=== PATIENT | male | born 1995 | race Caucasian/White ===

== ENCOUNTER 2017-06-06 17:02 | Emergency (ER) | payer MEDICAID ==
[~2017-06-06] VITALS: Ht 175.3 cm; Wt 85.0 kg
[2017-06-06 17:08] VITALS: Ht 175.3 cm; Wt 85.0 kg
[2017-06-06] MEDS ORDERED: SOD CHLORIDE 0.9% 1,000 ML IV STA (19:51)
[2017-06-06] MEDS ORDERED: ASPIRIN 81 MG TAB PO STA (19:51)
[2017-06-06 20:18] LABS: ADD UMIC NO; UR ASCORBIC ACID NEGATIVE (NEGATIVE); UR BILIRUBIN (Dip) NEGATIVE (NEGATIVE); UR BLOOD (Dip) NEGATIVE (NEGATIVE); UR CLARITY CLEAR (CLEAR); UR COLOR YELLOW (YELLOW); UR GLUCOSE (Dip) NEGATIVE (NEGATIVE); UR KETONES (Dip) NEGATIVE (NEGATIVE); UR LEUKOCYTE ESTERASE (Dip) NEGATIVE Leu/ul (NEGATIVE); UR NITRITE (Dip) NEGATIVE (NEGATIVE); UR SPECIFIC GRAVITY (Dip) 1.023 (1.003-1.030); UR TOTAL PROTEIN (Dip) NEGATIVE (NEGATIVE); UR UROBILINOGEN (Dip) NEGATIVE (NEGATIVE)
[2017-06-06 20:18] LABS: BASOPHILS % 0.4 % (0.0-2.0); EOSINOPHILS # 0.1 10^3/ul (0.0-0.5); EOSINOPHILS % 0.7 % (0.0-7.0); HEMATOCRIT 48.7 % (42.0-52.0); HEMOGLOBIN 17.4 g/dl (14.0-18.0); LYMPHOCYTES # 3.6 10^3/ul (0.8-2.9); LYMPHOCYTES % 48.6 % (15.0-51.0); MEAN CORPUSCULAR HEMOGLOBIN 31.2 pg (29.0-33.0); MEAN CORPUSCULAR HGB CONC 35.7 g/dl (32.0-37.0); MEAN CORPUSCULAR VOLUME 87.3 fl (82.0-101.0); MEAN PLATELET VOLUME 10.3 fl (7.4-10.4); MONOCYTE # 0.4 10^3/ul (0.3-0.9); NEUTROPHIL # 3.2 10^3/ul (1.6-7.5); NEUTROPHILS % 44.2 % (39.0-77.0); PLATELET COUNT 276 10^3/UL (140-415); RED BLOOD COUNT 5.58 10^6/ul (4.70-6.10); RED CELL DISTRIBUTION WIDTH 11.9 % (11.5-14.5); WHITE BLOOD COUNT 7.3 10^3/ul (4.8-10.8)
[2017-06-06 20:44] LABS: CALCIUM 10.5 mg/dl (8.4-10.2); CREATININE 1.01 mg/dl (0.61-1.24)
[2017-06-06 20:59] LABS: INR 1.15; PARTIAL THROMBOPLASTIN TIME 29.3 Sec (25.0-35.0); PROTIME 14.7 Sec (12.2-14.2); PT RATIO 1.1
--- NOTE | 2017-06-07 01:29 | RADRPT ---
PROCEDURE: Portable chest x-ray. CLINICAL INDICATION: Chest pain. TECHNIQUE: Portable AP view of the chest. COMPARISON: None. FINDINGS: No pulmonary edema or conolidation is identified. The cardiac silhouette is magnified. No pleural effusion is seen. There is no pneumothorax. IMPRESSION: 1. No evidence of acute cardiopulmonary disease. RPTAT: HTAR .Louis Powell MD, MD Date Time Electronically viewed and signed by .Louis Powell MD, on 06/07/2017 01:29 .R/
--- NOTE | 2017-06-07 02:42 | ERA ---
ER Documentation Chief Complaint Date/Time DATE: 06/07/17 TIME: 02:36 Chief Complaint loss of appetite, fatigue and chest pain x 1 week HPI 21-year-old male presenting with chest pain shortness of breath 1 day. Review of the nurse's notes is consistent from history I have obtained from the patient. Patient is a poor historian. Describes chest discomfort as pressure. No radiation. Patient denies drugs, previous ND/VTE, upper back pain, aching arm pain/numbness, leg pain/swelling, syncope, irregular heart beat, or epigastric pain. Patient also denies any personal or family cardiac history. ROS All systems reviewed and are negative except as per history of present illness. PMhx/Soc Medical and Surgical Hx: pt denies Medical Hx, pt denies Surgical Hx History of Surgery: No (DENIES MEDICAL AND SURGICAL HX.) Hx Alcohol Use: No Hx Substance Use: No Hx Tobacco Use: No Smoking Status: Never smoker Physical Exam Vitals Vital Signs Date Time Temp Pulse Resp B/P Pulse Ox O2 Delivery O2 Flow Rate FiO2 06/06/17 17:08 98.3 52 18 140/80 97 Physical Exam Const: 21-year-old male in no acute distress. Head: Atraumatic Eyes: Normal Conjunctiva ENT: Normal External Ears, Nose and Mouth. Neck: Full range of motion..~ No meningismus. Resp: Clear to auscultation bilaterally Cardio: Regular rate and rhythm, no murmurs Abd: Soft, non tender, non distended. Normal bowel sounds Skin: Diaphoretic. No petechiae or rashes Back: No midline or flank tenderness Ext: No cyanosis, or edema Neur: Awake and alert Psych: Altered affect. Normal Mood. Result Diagram: 06/06/17200506/06/172005 Results 24 hrs Laboratory Tests Test 06/06/17 19:35 06/06/17 20:06 Urine Color YELLOW Urine Clarity CLEAR Urine pH 6.0 Urine Specific [place] 1.023 Urine Ketones NEGATIVEmg/dL Urine Nitrite NEGATIVEmg/dL Urine Bilirubin NEGATIVEmg/dL Urine Urobilinogen NEGATIVEmg/dL Urine Leukocyte Esterase NEGATIVELeu/ul Urine Hemoglobin NEGATIVEmg/dL Urine Glucose NEGATIVEmg/dL Urine Total Protein NEGATIVEmg/dl White Blood Count 7.310^3/ul Red Blood Count 5.5810^6/ul Hemoglobin 17.4g/dl Hematocrit 48.7% Mean Corpuscular Volume 87.3fl Mean Corpuscular Hemoglobin 31.2pg Mean Corpuscular Hemoglobin Concent 35.7g/dl Red Cell Distribution Width 11.9% Platelet Count 64632^3/UL Mean Platelet Volume 10.3fl Neutrophils % 44.2% Lymphocytes % 48.6% Monocytes % 6.0% Eosinophils % 0.7% Basophils % 0.4% Nucleated Red Blood Cells % 0.0/100WBC Neutrophils # 3.210^3/ul Lymphocytes # 3.610^3/ul Monocytes # 0.410^3/ul Eosinophils # 0.110^3/ul Basophils # 0.010^3/ul Nucleated Red Blood Cells # 0.010^3/ul Prothrombin Time 14.7Sec Prothrombin Time Ratio 1.1 INR International Normalized Ratio 1.15 Activated Partial Thromboplast Time 29.3Sec Sodium Level 143mmol/L Potassium Level 4.0mmol/L Chloride Level 100mmol/L Carbon Dioxide Level 28mmol/L Anion Gap 19 Blood Urea Nitrogen 10mg/dl Creatinine 1.01mg/dl Glucose Level 94mg/dl Calcium Level 10.5mg/dl Troponin I < 0.012ng/ml Current Medications Medications (Trade) Dose Ordered Sig/Goyo Route PRN Reason Start Time Stop Time Status Last Admin Dose Admin Sodium Chloride (NS) 1,000 ml @ 1,000 mls/hr Q1H STAT IV 06/06/17 19:51 06/06/17 20:50 DC Aspirin (Aspirin) 162 mg ONCE STAT PO 06/06/17 19:51 06/06/17 19:53 DC Procedures/MDM 21-year-old male who is well-developed presenting with a chief complaint of chest discomfort and shortness of breath 1 day. Patient is a very poor historian and seems unreliable. EKG was obtained read by my attending as possible inferior ischemia. Second EKG was obtained. My attending has recommended CTPA. Workup included a CTPA, drug screen, troponin, CBC, CMP, urinalysis, EKG 3. Patient was given normal saline 1 L, aspirin 325 mg. Patient had relief of symptoms with time. Patient was unable to be found for 2 hours. Due to EMR.malfunction CTPA was pending at 9 hours. Patient will be handed off to Aparna Rubio NP. At this time I do not suspect the chest pain to be due to an acute coronary syndrome, pericarditis, aortic dissection, pulmonary embolism, pneumothorax, esophageal tear/rupture, pneumonia or pancreatitis. Departure Diagnosis: Primary Impression: Multiple complaints Condition: Stable ROSSY AGUIRRE PA-C Jun 07, 2017 02:42
--- NOTE | 2017-06-07 03:38 | RADRPT ---
PROCEDURE: CTA CHEST WITH CONTRAST CLINICAL INDICATION: 21-year-old male with shortness of breath. TECHNIQUE: The study was performed utilizing a GE uTestpeed VCT 64-slice CT scanner. Direct axi al sections were obtained from the thoracic inlet through the chest to the upper abdomen with a bolu s injection of 100 cc of [id number]-300 nonionic contrast material. Sagittal, coronal and maximal int ensity projections re-formations were obtained. One or more of the following dose reduction techniqu es were utilized: automated exposure control, adjustment of the mA and/or kV according to patient's size or use of iterative reconstruction technique. The images were reviewed on a PACS workstation. CTD/vol = 75.4 mGy; Total Exam DLP = 538.0 mGy-cm. COMPARISON: Chest x-ray June 06, 2017 FINDINGS: The aorta is without aneurysmal dilatation or dissection. There are small lymph nodes seen within th e mediastinum which are not pathologic by size criteria. The central pulmonary arteries are without evidence for filling defect to suggest pulmonary embolus or thrombus. There is no evidence for an in filtrate. No abnormal soft tissue masses or nodular densities are visualized. There is no evidence f or a pneumothorax. The osseous structures are unremarkable. Scans through the upper abdomen reveals that the upper liver is unremarkable. The adrenal glands hav e a normal appearance. The upper kidneys are functional and are without evidence for obstruction. IMPRESSION: Unremarkable CTA Chest. .Shan Salinas MD, Date Time Electronically viewed and signed by .Shan Salinas MD, on 06/07/2017 03:37 .Adalberto/
[2017-06-07 04:00] VITALS: BP 127/80; PULSE 74; RESP 18
[2017-06-07] MEDS ORDERED: ASPI325T4 PO (04:18)
[2017-06-08] MEDS ORDERED: IOHEXOL 100 ML ONE (18:01)
[2017-06-08] MEDS ORDERED: IODIXANOL LOCM 100 ML BTL ONE (18:01)
[2017-06-08] MEDS ORDERED: SOD CHLORIDE 0.9% 100 ML ONE ×2 (18:01)
== END 2017-06-07 05:53 | disposition home or self-care (01) ==
LOC: FTE 17:02
DX: R07.89 Other chest pain (principal); R53.83 Other fatigue
CPT/HCPCS: 36415; 71010; 71275; 80048; 80307; 81003; 84484; 85025; 85610; 85730; 93005; J7030; Z7502; Q9967